=== PATIENT | male | born 1990 | race Caucasian/White ===

== ENCOUNTER 2023-06-05 22:41 | Emergency (ER) | payer SELFPAY ==
[2023-06-05] MEDS: Bupivacaine 0.25% 10 ML SDV INJECT ONE (23:20)
[2023-06-05] MEDS: Penicillin V Potassium 250 MG Tab PO ONE (23:51)
== END 2023-06-05 23:55 | disposition other institution (70) ==
LOC: DL.ED 22:41
DX: K04.7 Periapical abscess without sinus (principal); F17.210 Nicotine dependence, cigarettes, uncomplicated
CPT/HCPCS: 64400; 99284; A9270; 99283